=== PATIENT | female | born 1975 | race Caucasian/White ===

== ENCOUNTER 2018-03-23 14:36 | Emergency (ER) | payer MEDICARE, MEDICAID ==
[~2018-03-23 14:36] MED LIST: ISOVUE-370 76%-LOCM 1 ML ONE
[2018-03-23 15:19] LABS: #Basophils 0.1 thou/uL (0.0-0.2); #Eosinphils 0.1 thou/uL (0.0-0.7); #Lymphocytes 2.2 thou/uL (1.20-3.40); #Monocytes 0.6 thou/uL (0.11-0.59); %Basophils 0.6 % (0.0-1.0); %Lymphocytes 19.9 % (21.0-51.0); %Monocytes 5.2 % (0.0-10.0); %Neutrophils 73.4 % (42.0-75.0); Hemoglobin 12.9 g/dL (12.0-16.0); Mean Corpuscular HGB CONC 33.1 g/dL (32.0-36.0); Mean Corpuscular Volume 90.7 fL (78.0-98.0); Mean Platelet Volume 8.8 fL (7.4-10.4); Platelet Count 218 thou/uL (130-400); RBC Distribution Width 13.4 % (11.5-14.5); White Blood Cell (WBC) Count 10.9 thou/uL (4.8-10.8)
[2018-03-23 15:47] LABS: ALT (SGPT) 10 U/L (8-55); AST (SGOT) 16 U/L (5-34); Alkaline Phosphatase 101 U/L (40-150); Anion Gap 14 mmol/L (10-20); BUN (Urea Nitrogen) 5 mg/dL (7.0-18.7); Bilirubin, Total 0.3 mg/dL (0.2-1.2); Calc. Creatinine Clearance 0 mL/min (70-130); Carbon Dioxide 20 mmol/L (22-29); Chloride 106 mmol/L (98-107); Estimated GFR-MDRD 78; Globulin 3.5 g/dL (2.4-3.5); Glucose 139 mg/dL (70-105); Potassium 3.2 mmol/L (3.5-5.1); Protein, Total 7.5 g/dL (6.0-8.3); Sodium 137 mmol/L (136-145)
[2018-03-23 15:54] LABS: BHCG - Serum Indeterminate (NEGATIVE); Pregs Control Background? CLEAR/WHITE (CLR/WHITE); Pregs Control Bar Appear? YES (CONTROL BAR)
[2018-03-23 15:59] LABS: Bilirubin Negative (Negative); Blood, Urine Negative (Negative); Clarity CLOUDY (Clear); Glucose, Urine (Dipstick) Negative (Negative); Leukocyte Negative (Negative); Nitrite Negative (Negative); Protein, Urine (Dipstick) Negative (Neg-Trace); Specific Gravity, Urine 1.013 (1.002-1.036); Urobilinogen 0.2 mg/dL (0.2-1.0)
[2018-03-23] MEDS ORDERED: Potassium Chloride 20 MEQ TAB ONE (16:28)
[2018-03-23] MEDS ORDERED: Acetaminophen 325 MG TAB ONE (17:02)
--- NOTE | 2018-03-23 17:54 | CT ---
CT OF ABDOMEN AND PELVIS WITH CONTRAST: 03/23/18 INDICATION: Abdominal pain. FINDINGS: There are nonspecific ground glass opacities of the lungs incompletely evaluated. Recommend correlati on with chest radiograph for further assessment. There is no focal hepatic or splenic lesion. The bow el is incompletely assessed without the presence of enteric contrast. There is no free air or ascites . Abdominal aorta is normal in caliber. Kidneys and adrenal glands are unremarkable. Pancreas is norm al in CT appearance. Several phleboliths are seen within the pelvis. The appendix is not well delinea alberto, which corresponds to the provided history of prior appendectomy. IMPRESSION: 1. No acute abnormality of the abdomen and pelvis. 2. Incompletely assessed bilateral patchy ground glass opacities of the pulmonary parenchyma whi ch are not reliably evaluated on the basis of this exam. Correlate with chest radiograph series for f urther assessment. 3. Additional details are described above. POS: KATHY
[2018-03-23] MEDS ORDERED: Sucralfate 1 GM/10 ML UDCUP ONE (18:31)
== END 2018-03-23 19:17 | disposition home or self-care (01) ==
LOC: ERS 14:36
DX: R10.32 Left lower quadrant pain (principal); R19.7 Diarrhea, unspecified; R79.89 Other specified abnormal findings of blood chemistry; F41.9 Anxiety disorder, unspecified; F31.9 Bipolar disorder, unspecified; F84.0 Autistic disorder; F17.210 Nicotine dependence, cigarettes, uncomplicated; Z79.899 Other long term (current) drug therapy
CPT/HCPCS: 36415; 74177; 80053; 81003; 82274; 83690; 84702; 84703; 85025; 86850; 86900; 86901; 96360; 96361